=== PATIENT | female | born 1985 ===

== ENCOUNTER 2017-07-22 20:15 | Emergency (ER) | payer MEDICAID, OTHER ==
[2017-07-22 21:36] VITALS: BP 103/61; PULSE 80; RESP 18; TEMP 98.5; O2SAT 100
--- NOTE | 2017-07-22 21:57 | ED PDOC ---
HPI: Female Pain Time Seen by Provider: 07/22/17 21:56 Chief Complaint (Nursing): Female Genitourinary Chief Complaint (Provider): vaginal bleeding History Per: Patient (32 y/o female approx 7 weeks gestation here with vaginal bleeding noted today steady. Notes minimal pain with bleeding. Denies any vomiting/fevers/chills/dysuria.) Past Medical History Reviewed: Historical Data, Nursing Documentation, Vital Signs Vital Signs: Last Vital Signs Temp 98.5 F 07/22/17 21:32 Pulse 80 07/22/17 21:32 Resp 18 07/22/17 21:32 BP 103/61 07/22/17 21:32 Pulse Ox 100 07/22/17 21:32 - Medical History PMH: Denies: Chronic Kidney Disease - Family History Family History: States: No Known Family Hx - Home Medications Home Medications: Ambulatory Orders Medication Instructions Recorded Amoxicillin/Potassium Clav 1 tab PO BID #14 tablet 06/24/15 [Augmentin 875-125 Tablet] Tobramycin 0.3% [Tobrex 0.3% Ophth 1 drop OS Q4H #1 bottle 06/24/15 Soln] - Allergies Allergies/Adverse Reactions: Allergies Allergy/AdvReac Type Severity Reaction Status Date / Time No Known Allergies Allergy Verified 09/02/14 20:21 Review of Systems ROS Statement: Except As Marked, All Systems Reviewed And Found Negative Physical Exam - Reviewed Nursing Documentation Reviewed: Yes Vital Signs Reviewed: Yes - Physical Exam Appears: Positive for: Well, Non-toxic, No Acute Distress Head Exam: Positive for: ATRAUMATIC, NORMAL INSPECTION, NORMOCEPHALIC Skin: Positive for: Normal Color, Warm, DRY Eye Exam: Positive for: EOMI, Normal appearance, PERRL ENT: Positive for: Normal ENT Inspection Neck: Positive for: Normal, Painless ROM Cardiovascular/Chest: Positive for: Regular Rate, Rhythm Respiratory: Positive for: CNT, Normal Breath Sounds Gastrointestinal/Abdominal: Positive for: Normal Exam, Bowel Sounds, Soft Pelvic Exam: Positive for: Active Bleeding (minimal blood noted in vaginal vault. No active bleeding noted.) Back: Positive for: Normal Inspection Extremity: Positive for: Normal ROM Neurologic/Psych: Positive for: Alert, Oriented - Laboratory Results Result Diagrams: 07/22/17 22:20 07/22/17 22:20 Urine POC: Positive - ECG O2 Sat by Pulse Oximetry: 100 - Progress ED Course And Treament: US transvaginal: FINDINGS: Gestation: No intrauterine gestational sac. Uterus/cervix: Retroverted uterus. Endometrium: 0.8 cm in thickness, mildly heterogeneous with minimal peripheral vascularity. Closed cervix. Ovaries: RIGHT ovary: 1.4 x 2.1 x 0.8 cm hypoechoic lesion with internal echoes. LEFT ovary: Normal. No adnexal masses. Free fluid: No significant free fluid. IMPRESSION: 1. No intrauterine gestation. DDX: Early IUP, missed , ectopic . 2. Mildly heterogeneous endometrium. RPOC not entirely excluded. 3. Probable complex RIGHT ovarian cyst. Thank you for allowing us to participate in the care of your patient. Dictated and Authenticated by: Rick Armando MD NS 1 liter wide open beta quant 68 patient to return to ED in 2 days for repeat beta quant Disposition - Clinical Impression Clinical Impression: Threatened miscarriage - Patient ED Disposition Is Patient to be Admitted: No - Disposition Disposition: Routine/Home Disposition Time: 00:44 Condition: FAIR Additional Instructions: RETURN IN 48 HOURS FOR REPEAT BETA QUANT AND CBC Instructions: Threatened Miscarriage Forms: [id number] ([place]), [facility] ED School/Work Excuse
[2017-07-22 22:28] LABS: BASO # 0.1 K/uL (0.0-0.2); BASO % 0.9 % (0.0-2.0); EOS # 0.3 K/uL (0.0-0.7); EOS % 4.3 % (0.0-4.0); HEMOGLOBIN 13.5 g/dL (12.0-16.0); LYMPH # 2.8 K/uL (1.0-4.3); LYMPH % 40.5 % (20.0-40.0); MEAN CELL VOLUME 92.3 fl (81.0-99.0); MEAN CORPUSCULAR HEMOGLOBIN 31.1 pg (27.0-31.0); MEAN CORPUSCULAR HGB CONC 33.7 g/dL (33.0-37.0); MEAN PLATELET VOLUME 7.8 fl (7.2-11.7); MONO # 0.6 K/uL (0.0-0.8); MONO % 8.8 % (0.0-10.0); NEUT # 3.2 K/uL (1.8-7.0); NEUT % 45.5 % (50.0-75.0); NRBC % 0.2 % (0.0-0.0); RBC 4.33 Mil/uL (3.80-5.20); RED CELL DISTRIBUTION WIDTH 13.1 % (11.5-14.5)
[2017-07-22 22:39] LABS: ALB/GLOB RATIO 1.3 (1.0-2.1); ALBUMIN 4.4 g/dL (3.5-5.0); ALT/SGPT 33 U/L (9-52); AST/SGOT 37 U/L (14-36); BLOOD UREA NITROGEN 15 mg/dl (7-17); CALCIUM 9.3 mg/dL (8.4-10.2); GFR AFRICAN-AMERICAN > 60; GFR NON-AFRICAN AMERICAN > 60
--- NOTE | 2017-07-22 23:50 | US ---
EXAM: US , Transvaginal CLINICAL HISTORY: 32 years old, female; Pain; complicated by abdominal or pelvic pain; Lower; First trimester; Gestational age or lmp: 06/05/2017; ; Patient HX: 7wks preg, vaginal "period like bleeding". Pt took home preg. Test (+); Additional info: R/O ectopic TECHNIQUE: Real-time transvaginal obstetrical ultrasound of the maternal pelvis and a first trimester with image documentation. Transvaginal imaging was used for better evaluation of the fetus and adnexa. COMPARISON: No relevant prior studies available. FINDINGS: Gestation: No intrauterine gestational sac. Uterus/cervix: Retroverted uterus. Endometrium: 0.8 cm in thickness, mildly heterogeneous with minimal peripheral vascularity. Closed cervix. Ovaries: RIGHT ovary: 1.4 x 2.1 x 0.8 cm hypoechoic lesion with internal echoes. LEFT ovary: Normal. No adnexal masses. Free fluid: No significant free fluid. IMPRESSION: 1. No intrauterine gestation. DDX: Early IUP, missed , ectopic . 2. Mildly heterogeneous endometrium. RPOC not entirely excluded. 3. Probable complex RIGHT ovarian cyst.
== END 2017-07-23 00:55 | disposition home or self-care (01) ==
LOC: H.ER 20:15
DX: O20.0 Threatened abortion (principal); Z3A.01 Less than 8 weeks gestation of pregnancy